=== PATIENT | female | born 1960 | race African-American/Black ===

== ENCOUNTER 2020-01-06 23:49 | Emergency (ER) | payer BC ==
[~2020-01-06] VITALS: Ht 165.1 cm; Wt 79.0 kg
[2020-01-07 00:09] VITALS: BP 147/96
== END 2020-01-07 03:52 | disposition left against medical advice (07) ==
LOC: ER 23:49
DX: H57.89 Other specified disorders of eye and adnexa (principal); Z53.21 Procedure and treatment not carried out due to patient leaving prior to being seen by health care provider